=== PATIENT | male | born 1965 | race Caucasian/White ===

== ENCOUNTER 2016-04-03 17:40 | Emergency (ER) | payer BC, OTHER ==
[2016-04-03 18:51] VITALS: BP 136/77
--- NOTE | 2016-04-03 19:04 | UC ---
Lower Extremity/Ankle HPI - HPI Summary HPI Summary: inverted right foot at work yesterday. [place] a "pop", now pain and swelling. No prior ankle injuries. "I would have let it go, but work made me come in to get it checked out." No other injuries - History of Current Complaint Chief Complaint: UCLowerExtremity Stated Complaint: RIGHT ANKLE INJURY Time Seen by Provider: 04/03/16 18:57 Hx Obtained From: Patient Onset/Duration: Sudden Onset, Lasting Hours - 24 Severity Initially: Moderate Severity Currently: Mild Aggravating Factor(s): Standing, Ambulation Alleviating Factor(s): Rest, Elevation, Ice Able to Bear Weight: Yes Related History: Occupational Injury - Risk Factors Gout Risk Factors: Age Over 40, Male DVT Risk Factors: Negative Septic Arthritis Risk Factor: Negative - Allergies/Home Medications Allergies/Adverse Reactions: Allergies Allergy/AdvReac Type Severity Reaction Status Date / Time No Known Allergies Allergy Verified 04/03/16 18:44 Home Medications: Home Medications Otc Cholesterol Med 1 tab PO DAILY 04/03/16 [History Confirmed 04/03/16] PMH/Surg Hx/FS Hx/Imm Hx Previously Healthy: Yes Endocrine History Of: Denies: Diabetes, Thyroid Disease Cardiovascular History Of: Denies: Cardiac Disorders, Hypertension Respiratory History Of: Denies: COPD, Asthma GI/ History Of: Denies: Ulcer - Surgical History Surgical History: Yes Surgery Procedure, Year, and Place: SX X 1 RIGHT KNEE. SX X 2 LEFT KNEE - Family History Known Family History: Positive: Hypertension - Social History Occupation: Employed Full-time - construction Lives: With Family Alcohol Use: Occasionally Alcohol Amount: 2 beers a day Substance Use Type: None Smoking Status (MU): Never Smoked Tobacco Review of Systems Constitutional: Negative Skin: Negative Eyes: Negative ENT: Negative Respiratory: Negative Cardiovascular: Negative Gastrointestinal: Negative Genitourinary: Negative Motor: Negative Neurovascular: Negative Musculoskeletal: Arthralgia, Decreased ROM, Edema, Myalgia Neurological: Negative Psychological: Negative All Other Systems Reviewed And Are Negative: Yes Physical Exam Triage Information Reviewed: Yes Appearance: Well-Appearing, No Pain Distress, Well-Nourished Vital Signs: Initial Vital Signs Temp 99.5 F 04/03/16 18:43 Pulse 68 04/03/16 18:43 Resp 16 04/03/16 18:43 BP 136/77 04/03/16 18:43 Pulse Ox 98 04/03/16 18:43 Vital Signs Reviewed: Yes Eye Exam: Normal Neck exam: Normal Respiratory Exam: Normal Cardiovascular Exam: Normal Musculoskeletal Exam: Other - mild swelling over lateral malleolus on right, mild tenderness. No pain at base 5th MT. No medial malleolus pain. Diagnostics - Laboratory Diagnostic Studies Completed/Ordered: xray neg Lower Extremity Course/Dx - Differential Dx/Diagnosis Differential Diagnosis/HQI/PQRI: Fracture (Closed), Sprain Provider Diagnoses: ankle sprain Discharge - Discharge Plan Condition: Stable Disposition: HOME Patient Education Materials: Ankle Sprain (ED), Ankle Exercises (GEN) Referrals: No Primary Care Phys,NOPCP [Primary Care Provider] -
--- NOTE | 2016-04-03 21:18 | RAD ---
Indication: Ankle pain, inversion injury. 3 views of the right ankle demonstrates no fracture. Bony fragment adjacent to the medial malleolus likely is due to old injury. IMPRESSION: Fragmentation and bony fragments adjacent to the medial malleolus which is likely sequela from prior injury.
== END 2016-04-03 20:43 | disposition home or self-care (01) ==
LOC: UCCORT 17:40
DX: S93.401A Sprain of unspecified ligament of right ankle, initial encounter (principal); X58.XXXA Exposure to other specified factors, initial encounter; Y93.9 Activity, unspecified; Y99.0 Civilian activity done for income or pay
CPT/HCPCS: 99211; G0463

== ENCOUNTER 2018-03-05 13:00 | Emergency (ER) | payer BC, OTHER ==
[2018-03-05 13:23] VITALS: BP 160/88
--- NOTE | 2018-03-05 13:39 | UC ---
Ear Complaint HPI - HPI Summary HPI Summary: Pt c/o bilateral ear "irritation". Pt states that he has "wax problems" with his ears and he has been trying to "dig out " the wax. No c/o bilateral ear pain with left ear more painful than right with c/o swelling and decreased hearing. - History of Current Complaint Chief Complaint: UCEar Stated Complaint: BI LAT EAR COMPLAINT Time Seen by Provider: 03/05/18 13:33 Hx Obtained From: Patient Onset/Duration: Gradual Onset, Lasting Days, Still Present Severity Initially: Mild Severity Currently: Mild Pain Intensity: 2 Associated Signs/Symptoms: Positive: Hearing Loss, Swelling @ - Allergies/Home Medications Allergies/Adverse Reactions: Allergies Allergy/AdvReac Type Severity Reaction Status Date / Time No Known Allergies Allergy Verified 03/05/18 13:18 PMH/Surg Hx/FS Hx/Imm Hx Previously Healthy: Yes - Surgical History Surgical History: Yes Surgery Procedure, Year, and Place: SX X 1 RIGHT KNEE. SX X 2 LEFT KNEE - Family History Known Family History: Positive: Hypertension - Social History Occupation: Employed Full-time Lives: With Family Alcohol Use: Occasionally Alcohol Amount: 2 beers a day Substance Use Type: None Smoking Status (MU): Never Smoked Tobacco Have You Smoked in the Last Year: No Review of Systems All Other Systems Reviewed And Are Negative: Yes Constitutional: Positive: Negative Skin: Positive: Negative Eyes: Positive: Negative ENT: Positive: Ear Ache Respiratory: Positive: Negative Cardiovascular: Positive: Negative Gastrointestinal: Positive: Negative Genitourinary: Positive: Negative Motor: Positive: Negative Neurovascular: Positive: Negative Musculoskeletal: Positive: Negative Neurological: Positive: Negative Psychological: Positive: Negative Is Patient Immunocompromised?: No Physical Exam Triage Information Reviewed: Yes Appearance: Well-Appearing Vital Signs: Initial Vital Signs Temp 97.6 F 03/05/18 13:19 Pulse 81 03/05/18 13:19 Resp 16 03/05/18 13:19 BP 160/88 03/05/18 13:19 Pulse Ox 98 03/05/18 13:19 Vital Signs Reviewed: Yes Eye Exam: Normal ENT: Positive: Other - left outer ear canal swelling, unable to visualize TM of left ear. right ear with small amount of cerumen. Ear Complaint Course/Dx - Differential Dx/Diagnosis Differential Diagnosis/HQI/PQRI: Cerumen Impaction, Otitis Externa Provider Diagnosis: Left otitis externa, Excessive cerumen in right ear canal Discharge - Sign-Out/Discharge Documenting (check all that apply): Patient Departure All imaging exams completed and their final reports reviewed: No Studies - Discharge Plan Condition: Stable Disposition: HOME Prescriptions: Ciproflox/Dexameth OTIC.SUSP* [Ciprodex OTIC.SUSP*] 2 drop LEFT EAR Q12H 7 Days #1 btl Patient Education Materials: Otitis Externa (ED) Referrals: Mauricio Green MD [Primary Care Provider] - If Needed - Billing Disposition and Condition Condition: STABLE Disposition: Home - Attestation Statements Provider Attestation: I was available for consult. This patient was seen by the AYDIN. The patient was not presented to, seen by, or examined by me. -Halina
== END 2018-03-05 14:02 | disposition home or self-care (01) ==
LOC: UCCORT 13:00
DX: H60.92 Unspecified otitis externa, left ear (principal); H61.21 Impacted cerumen, right ear
CPT/HCPCS: 99212; G0463